=== PATIENT | female | born 1965 | race African-American/Black ===

== ENCOUNTER 2016-09-07 17:52 | Emergency (ER) | payer MEDICAID ==
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
[2016-09-07 19:48] LABS: COLOR YELLOW; LEUKOCYTE ESTERASE,URINE NEGATIVE (NEGATIVE); NITRITE,URINE NEGATIVE (NEGATIVE)
[2016-09-07 19:58] LABS: BACTERIA 1+ /hpf (NONE SEEN); MUCUS 1+ /lpf (NONE-1+); WBC,URINE 15-25 /hpf (0-3)
[2016-09-07] MEDS ORDERED: CEPHALEXIN 500 MG CAP PO ONE (21:11)
[2016-09-07 21:24] VITALS: BP 126/61; PULSE 69; RESP 18; TEMP 97.3; O2SAT 96
--- NOTE | 2016-09-07 23:14 | MR ---
MRI of the Lumbar Spine (Without Contrast) Clinical Indications: Urinary incontinence. Right lower extremity radiculopathy. Technique: Sagittal and axial T1 and T2 MR sequences of the lumbar spine, without contrast. Findings L1-L2: No disk herniation or stenosis. L2-L3: No disk herniation or stenosis. L3-L4: No disk herniation or stenosis. L4-L5: Degenerative grade 1 spondylolisthesis, associated with diffuse annular bulging and secondary moderate to advanced acquired central canal stenosis. There is crowding of the cauda equina within the thecal space. Posteriorly, facet and ligamentum flavum degenerative hypertrophy contribute to ac quired central canal stenosis. Foramina are moderately stenotic bilaterally. L5-S1: Disk desiccation is associated with diskogenic bone marrow edema involving the L5 and S1 vert ebral bodies. A more focal small right paracentral disk protrusion is present, with slight posterior displacement of the crossing right S1 nerve root. The foramina are moderately stenotic bilaterally. Impressions 1. Grade 1 degenerative spondylolisthesis at L4-L5, with associated moderate to advanced acquired ce ntral canal stenosis and bilateral neural foraminal stenosis. 2. Diskogenic bone marrow changes at L5-S1, with small right paracentral disk protrusion and slight posterior displacement of the crossing right S1 nerve root. There is also moderate bilateral neural foraminal stenosis at this level. Results called to Dr. Aleksander Mackenzie at 9:00 p.m.
== END 2016-09-07 21:24 | disposition home or self-care (01) ==
DX: N39.0 Urinary tract infection, site not specified (principal); F17.200 Nicotine dependence, unspecified, uncomplicated

== ENCOUNTER 2018-08-26 05:05 | Emergency (ER) | payer MEDICAID ==
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
[2018-08-26] MEDS ORDERED: ACETAMINOPHEN 500 MG TAB PO ONE (05:20)
[2018-08-26 06:06] VITALS: BP 127/103
== END 2018-08-26 06:19 | disposition home or self-care (01) ==
DX: S06.0X0A Concussion without loss of consciousness, initial encounter (principal); Y04.0XXA Assault by unarmed brawl or fight, initial encounter; Y92.480 Sidewalk as the place of occurrence of the external cause

== ENCOUNTER 2018-09-22 03:54 | Emergency (ER) | payer MEDICAID ==
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
[2018-09-22 05:42] VITALS: BP 120/80
== END 2018-09-22 05:41 | disposition home or self-care (01) ==
LOC: EEVIPCON 03:54
DX: Z76.89 Persons encountering health services in other specified circumstances (principal); Z90.49 Acquired absence of other specified parts of digestive tract

== ENCOUNTER → 2018-10-12 | Outpatient (CLI) | payer MEDICAID | LOC: FIMAGING 14:29 | PROVIDERS: ATTEND Family Medicine | DX: D25.2 Subserosal leiomyoma of uterus (principal); R10.84 Generalized abdominal pain ==

== ENCOUNTER 2018-10-19 20:11 | Emergency (ER) | payer MEDICAID ==
[2018-10-19] MEDS ORDERED: NS 500 ML IV ONE (20:41)
--- NOTE | 2018-10-19 20:43 | CPEKG ---
Test Reason : OPEN Blood Pressure : / mmHG Vent. Rate : 100 BPM Atrial Rate : 102 BPM P-R Int : 145 ms QRS Dur : 091 ms QT Int : 323 ms P-R-T Axes : 084 089 031 degrees QTc Int : 417 ms Sinus tachycardia Confirmed by Allen Hutchison ([id number]) on 10/19/2018 8:42:47 PM Referred By: PHYSICIAN ED Confirmed By:Allen Hutchison
[2018-10-19] MEDS ORDERED: ASPIRIN 81 MG CHEWABLE TAB PO ONE (21:19)
[2018-10-19 21:35] LABS: INR 1.02 (0.83-1.16); PROTIME(PATIENT) 13.6 SEC (12.0-15.0)
[2018-10-19 22:02] LABS: PLATELET COUNT 214 10^3/uL (150-400)
[2018-10-19 22:19] VITALS: BP 144/97
--- NOTE | 2018-10-19 22:32 | EDPHY ---
H & P Time Seen by Provider: 10/19/18 21:25 HPI/ROS: HPI Chest pains. 53-year-old female by private vehicle with her . This patient reports that at approximately 6:30 p.m. to 7:00 p.m. She developed which she describes as sharp brief pinching pains across her anterior chest. She reports this persisted. She has not had this pain before. She denies any associated shortness of breath. Her brought her into the emergency department. She has no history of diabetes, no history of hypertension or hyperlipidemia. No significant family history that she is aware of concerning coronary artery disease. She does not smoke. She is feeling better now. ROS: Constitutional: No fever, no chills. No weakness. Eyes: No discharge. No changes in vision. ENT: No sore throat. No nasal congestion or rhinorrhea. Respiratory: No cough. No shortness of breath. Cardiac: As above, no palpitations. Gastrointestinal: No abdominal pain, no vomiting, no diarrhea. Genitourinary: No hematuria. No dysuria or increased frequency with urination. Musculoskeletal: No back pain. No neck pain. No myalgias or arthralgias. Skin: No rashes. Neurological: No headache. No focal weakness or altered sensation. Past medical history: , rib fractures, small-bowel obstruction, traumatic brain injury, heart murmur, back pain chronic. Her primary care physician is Dr. Sonali Chakraborty. Social history: Nonsmoker. No alcohol. She is here with her . Physical Exam: General Appearance: Alert, mildly anxious, she is not in distress. This patient is responding to questions appropriately and in full sentences. This patient appears well-hydrated and well-nourished. Eyes: Pupils equal and round no pallor or injection. No lid edema, erythema or injection. Respiratory: There are no retractions, lungs are clear to auscultation with good air movement bilaterally. Cardiovascular: Regular rate and rhythm. No murmur appreciated in the emergency department. Chest wall is stable on palpation. No rashes. Gastrointestinal: Abdomen is soft and nontender, no masses, bowel sounds normal. No focal tenderness at McBurney's point. No Mims sign. Neurological: Motor sensory function is grossly intact. Cranial nerves are normal. Gait is normal. Skin: Warm and dry, no rashes. Musculoskeletal: Neck is supple and nontender. Extremities are symmetrical. All joints range without pain or impingement. Psychiatric: No agitation. No depression. Database: EKG: EKG time is 10:25 p.m.; EKG shows a narrow complex sinus tachycardia with ventricular rate of 100. The [place], QRS, QT intervals are within normal limits. There are no ST-T wave changes indicative of ischemic or injury pattern. No evidence of right heart strain. Interpreted by me. Imaging: Chest x-ray AP portable; the cardiac mediastinal silhouette is unremarkable. No evidence of infiltrate or pneumothorax. No acute cardiopulmonary disease process noted. Interpreted by me. Procedures: Emergency department course: Triage vital signs reviewed. Mildly tachycardic and hypertensive when she arrived. An IV was placed. She was placed on a engine monitor. EKG was obtained and reviewed by myself. She was given 324 mg of chewed aspirin. The patient is low risk based on her heart score. On my initial evaluation she states that she feels anxious but denies any chest pain or discomfort at this time. 10:30 p.m., the patient was re-evaluated, resting comfortably at this time. Vital signs reviewed. She is mildly hypertensive. Tachycardia has resolved. She is feeling much better. Results of her emergency department workup were discussed with her and her . These results have been reassuring. I discussed admission for observation overnight. She does feel comfortable going home and is declining admission at this time. The patient competently engages in shared decision making. They demonstrate capacitance to make decisions. Explained to the patient that I would have her follow up with [facility], our cardiology group. I have placed an order for an outpatient cardiology consultation visit. This was explained to the patient and her . Return to emergency department precautions were thoroughly reviewed with both of them. All of their questions were answered. The patient was discharged home in good condition with her . Differential Diagnosis: The differential diagnosis on this patient includes but is not limited to anxiety reaction, noncardiac chest pain. Acute coronary syndrome, myocarditis, pericarditis, aortic dissection, pneumonia, pneumothorax unlikely. This represents a partial list of diagnoses considered. These considerations are based on history, physical exam, past history, reassessment and diagnostic testing. Smoking Status: Light smoker Constitutional: Initial Vital Signs Temperature (C) 37.6 C 10/19/18 20:14 Heart Rate 107 H 10/19/18 20:14 Respiratory Rate 20 10/19/18 20:14 Blood Pressure 176/113 H 10/19/18 20:14 O2 Sat (%) 100 10/19/18 20:14 O2 Delivery Mode Room Air Allergies/Adverse Reactions: meperidine HCl [From Demerol] Allergy (Verified 08/26/18 05:07) Home Medications: Medication Instructions Recorded Amoxicillin/Clavulanate Pot 875 mg PO BID #14 tab 09/22/18 [Augmentin 875 MG TAB (*)] Wellbutrin Sr 09/22/18 Medical Decision Making - Data Points Laboratory Results: Laboratory Results 10/19/18 21:05 10/19/18 21:05 Medications Given: Discontinued Medications Aspirin (Aspirin) 324 mg PO EDNOW ONE Stop: 10/19/18 21:20 Last Admin: 10/19/18 21:30 Dose: 324 mg Sodium Chloride (Ns) 500 mls @ 1,000 mls/hr IV EDNOW ONE PRN Reason: Protocol Stop: 10/19/18 21:10 Last Admin: 10/19/18 21:10 Dose: 500 mls Point of Care Test Results: Chemistry 10/19/18 21:18 POC Troponin I 0.01 ng/mL ng/mL (0.00-0.08) Departure - Departure Disposition: Home, Routine, Self-Care Clinical Impression: Chest discomfort Condition: Good Instructions: Chest Pain (ED) Additional Instructions: Read and follow provided instructions. [facility], our cardiology group should contact you tomorrow regarding appointment time for your follow-up. You can call their office if you do not hear from them by 1:00 p.m. Tomorrow afternoon to schedule a follow-up appointment for Tuesday or Tuesday. You should also follow up with her primary care physician for re-evaluation within the next 2-3 days. Return to the emergency department for return of chest pain, shortness of breath or other serious concerns. Referrals: Sonali Chakraborty MD [Primary Care Provider] - As per Instructions [facility] [Provider Group] - As per Instructions
== END 2018-10-19 22:43 | disposition home or self-care (01) ==
DX: R07.9 Chest pain, unspecified (principal); E86.9 Volume depletion, unspecified
CPT/HCPCS: 84484-ER

== ENCOUNTER 2019-02-01 10:33 | Inpatient (IN) | payer MEDICAID | END 2019-02-02 15:37 | disposition home or self-care (01) | LOC: F3N 13:21 ==